=== PATIENT | female | born 2000 | race Caucasian/White ===

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

== ENCOUNTER 2021-03-17 08:10 | Emergency (ER) | payer OTHER, SELFPAY ==
[2021-03-17 08:11] VITALS: BP 145/92; PULSE 99; RESP 16; TEMP 36.2; O2SAT 100; BMI 39.3
--- NOTE | 2021-03-17 08:31 | CT_ITS ---
STUDY: CT ABDOMEN AND PELVIS WITH CONTRAST REASON FOR EXAM: Female, 20 years old. Abd pain -- IV PO Contrast. Chronic UTI. RADIATION DOSAGE (If Supplied By Facility): CTDIvol = ( 15.07 ) mGy, DLP = ( 1283.92 ) mGycm TECHNIQUE: Transaxial images were obtained from the dome of the diaphragm to the symphysis pubis without oral contrast. Oral and amp; IV Gastrografin and amp; 100mL Isovue-300 was administered. Sagittal and coronal images were reconstructed. Individualized dose optimization techniques were used for this CT. COMPARISON: None. FINDINGS: The visualized lung bases are unremarkable. The visualized portions of the heart are within normal limits. Normal liver. Normal gallbladder and extrahepatic biliary system. Normal spleen. Normal pancreas. Normal bilateral adrenal glands. Normal right kidney. Normal left kidney. Normal visualized stomach. Normal small intestine. Normal colon. The appendix is visualized and appears normal. Normal abdominal aorta. Normal inferior vena cava. There is borderline retroperitoneal lymphadenopathy with enlarged nodes no greater than 10mm in the short axis diameter. Normal urinary bladder. Small follicles are seen in the left ovary. An IUD is seen within the uterus. Normal abdominal wall. Normal osseous structures. CT/Abdomen/Pelvis WITH Contrast IMPRESSION: Small follicles are seen within the left ovary. IUD is seen within the endometrium. Electronically Signed: Jose Cortes MD at 10:40 EDT , Service support ,
--- NOTE | 2021-03-17 08:32 | EX.ED.DYSGE1 ---
HPI History of Present Illness Chief Complaint: Complaint Narrative Narrative: 20-year-old female presenting with abdominal pain. Patient states this has been ongoing for approximately 2 weeks. She states she was initially treated for UTI and finished a course of antibiotics. She states her UTI symptoms have resolved. She continues to have lower abdominal pain. She has nausea with no vomiting. She has been having frequent stools and has occasionally has blood in her stool. She states that this does not occur with every bowel movement. Recent Illness/Hospitalization: No PFSH PFSH Medical History no medical history Home Medications bupropion HCl 150 mg PO DAILY 08/01/19 [History Last Taken Unknown] ibuprofen 600 mg PO Q6H PRN #20 tab 08/02/19 [Rx Last Taken Unknown] Allergy/AdvReac Type Severity Reaction Status Date / Time No Known Allergies Allergy Verified 03/17/21 08:14 Social History Smoking Status: Never smoker ROS ROS ED Constitutional Constitutional ED: Denies fever(s) Eyes Eyes: Denies change in vision ENT ENT ED: Denies rhinorrhea or sore throat Cardiovascular Cardiovascular: Denies chest pain or palpitations Respiratory/Chest Respiratory/Chest: Denies cough or dyspnea Gastrointestinal Gastrointestinal: Reports abdominal pain and nausea; Denies diarrhea or vomiting Genitourinary Genitourinary ED: Denies dysuria Musculoskeletal Musculoskeletal: Denies myalgias Integumentary Denies rash Neurologic Neurologic: Denies headache(s) Psychiatric Psychiatric: Denies suicidal thoughts EXAM Physical Exam Const Vital Signs: 03/17/21 08:11 03/17/21 10:55 Temperature 97.1 F L Temperature Source Temporal Pulse Rate 99 71 Respiratory Rate 16 Blood Pressure 145/92 H 119/67 Blood Pressure Mean 109 84 Pulse Ox 100 99 Oxygen Delivery Method Room Air Room Air Positive well nourished and well developed General Appearance ED: well developed HEENT Reports normocephalic and head/scalp atraumatic Eyes PERRL and EOMs intact bilaterally Neck supple General: Negative for tenderness Chest Wall inspection of chest normal Resp normal respiratory effort and clear to auscultation bilaterally Cardio regular rate and regular rhythm GI non-distended Palpation: soft and tender LLQ and RLQ; Negative for guarding or rebound tenderness present no CVA tenderness Extremity normal to inspection Neuro oriented x3 Sensorium / Orientation: alert Psych mental status grossly normal Skin no rashes or lesions noted MDM MDM MDM Narrative Medical decision making narrative: Patient was given IV fluids, Zofran. Labs are unremarkable. Stool is guaiac negative. negative. Urinalysis unremarkable. CT abdomen pelvis was obtained and shows small follicles are seen within the left ovary. IUD is seen within the endometrium. On reevaluation patient is resting comfortably. Advised to follow-up with her primary care physician and [facility]. Advised return to ED for worsening complaints. Lab Data Attestation: I reviewed the patient's lab results. Labs: Laboratory Results - last 24 hr 03/17/21 03/17/21 03/17/21 08:40 08:40 08:40 WBC 8.2 RBC 4.75 Hgb 13.4 Hct 41.1 MCV 86.5 MCH 28.2 MCHC 32.6 RDW Std Deviation 40.7 RDW Coeff of Zaynab 12.7 Plt Count 333 MPV 9.4 Immature Gran % (Auto) 0.600 Neut % (Auto) 64.2 Lymph % (Auto) 27.3 Frederick % (Auto) 6.3 Eos % (Auto) 1.2 Baso % (Auto) 0.4 Absolute Neuts (auto) 5.3 Absolute Lymphs (auto) 2.24 Nucleated RBC % 0 Sodium 140 Potassium 3.8 Chloride 105 Carbon Dioxide 27.0 Anion Gap 8 BUN 9 Creatinine 0.73 Estim Creat Clear Calc 102.54 Est GFR (MDRD) Af Amer 133 Est GFR (MDRD) Non-Af 110 BUN/Creatinine Ratio 12.4 Glucose 86 Calcium 9.2 Total Bilirubin 0.30 AST 10 L ALT 23 Alkaline Phosphatase 68 Total Protein 8.1 Albumin 3.8 Globulin 4.3 H Albumin/Globulin Ratio 0.9 Serum , Qual NEGATIVE Urine Color Urine Clarity Urine pH Ur Specific [place] Urine Protein Urine Glucose (UA) Urine Ketones Urine Occult Blood Urine Nitrite Urine Bilirubin Urine Urobilinogen Ur Leukocyte Esterase Urine RBC Urine WBC Ur Squamous Epith Cells Urine Bacteria Urine Mucus 03/17/21 08:40 WBC RBC Hgb Hct MCV MCH MCHC RDW Std Deviation RDW Coeff of Zaynab Plt Count MPV Immature Gran % (Auto) Neut % (Auto) Lymph % (Auto) Frederick % (Auto) Eos % (Auto) Baso % (Auto) Absolute Neuts (auto) Absolute Lymphs (auto) Nucleated RBC % Sodium Potassium Chloride Carbon Dioxide Anion Gap BUN Creatinine Estim Creat Clear Calc Est GFR (MDRD) Af Amer Est GFR (MDRD) Non-Af BUN/Creatinine Ratio Glucose Calcium Total Bilirubin AST ALT Alkaline Phosphatase Total Protein Albumin Globulin Albumin/Globulin Ratio Serum , Qual Urine Color Yellow Urine Clarity Sl. Cloudy Urine pH 5.0 Ur Specific [place] 1.025 Urine Protein Negative Urine Glucose (UA) Normal Urine Ketones Negative Urine Occult Blood Negative Urine Nitrite Negative Urine Bilirubin Negative Urine Urobilinogen Normal Ur Leukocyte Esterase Negative Urine RBC 0 SEEN Urine WBC 0 SEEN Ur Squamous Epith Cells 5-10 SEEN Urine Bacteria RARE Urine Mucus 0 SEEN Discharge Plan Triage Chief Complaint: Complaint ED Provider: Candi Holder Dx/Rx/DC Orders Clinical Impression: Abdominal pain in female patient Instructions: ED Abdominal Pain Unkn Cause Fem Prescriptions: No Action bupropion HCl 150 MG tablet extended release 24 hr 150 mg PO DAILY RF: 0 ibuprofen 600 MG tablet 600 mg PO Q6H PRN (Reason: Pain) Qty: 20 RF: 1 Primary Care Provider: Samuel aLra Referrals: Samuel Lara MD [Primary Care Provider] - Disposition Disposition: Home, Self Care
[2021-03-17 08:46] LABS: Mucous, Urine 0 SEEN /hpf (<or=2+); Red Blood Cells-Urine 0 SEEN /hpf (0-5); White Blood Cells 0 SEEN /hpf (0-5)
[2021-03-17] MEDS: Ondansetron 4 MG/2 ML Vial IV (08:53)
[2021-03-17] MEDS: 0.9% Normal Saline 1,000 ML 1000 ML IV (08:53)
[2021-03-17 08:56] LABS: Color, Urine Yellow (Yellow); Glucose, Dipstick Normal (Normal); Ketone-Dipstick Negative (Negative); Leukocyte Esterase-Dipstick Negative /ul (Negative); Nitrite-Dipstick Negative (Negative); Occult Blood-Urine Negative /ul (Negative); Protein-Dipstick Negative (Negative); Specific Gravity, Urine 1.025 (1.002-1.030); Urine Bilirubin Dipstick Negative (Negative); Urine Clarity Sl. Cloudy (Clear); Urine Urobilinogen Normal (Normal)
[2021-03-17 09:03] LABS: Bacteria RARE /hpf (None Seen); Squamous Epithelial Cells - UA 5-10 SEEN /hpf (5-10)
[2021-03-17 09:06] LABS: Absolute Lymphocyte Count 2.24 X10^3/uL (0.83-4.51); Absolute Neutrophil Count 5.3 X10^3/uL (2.0-7.7); Basophil# 0.03 X10^3/uL; Basophil% 0.4 % (0-1); Eosinophils% 1.2 % (0-5); Hematocrit 41.1 % (37-47); Hemoglobin 13.4 g/dL (12.0-15.0); Lymphocyte # 2.24 X10^3/ul (0.83-4.51); Lymphocyte % 27.3 % (19-41); Mean Corp Hgb Conc 32.6 g/dL (32-36); Mean Corpuscular Hgb 28.2 pg (27.0-32.0); Mean Corpuscular Volume 86.5 fL (81-99); Mean Platelet Vol. 9.4 fl (6.2-12.0); Monocyte# 0.52 X10^3/uL; Monocyte% 6.3 % (0-10); NRBC Flagged by Analyzer 0 % (0-5); Neutrophil # 5.28 X10^3/uL (2.7-7.7); Neutrophil % 64.2 % (47-70); Platelet Count 333 K/mm3 (150-450); RBC Distribution Width CV 12.7 % (11.6-14.6); RBC Distribution Width SD 40.7 fl (35.1-43.9); Red Blood Count 4.75 M/mm3 (4.2-5.4); White Blood Count 8.2 K/mm3 (4.4-11.0)
[2021-03-17 09:19] LABS: Internal QC Validated? YES +Cl - CLEAR BKGD; Pregnancy, Serum, hCG Quali. NEGATIVE Negative
[2021-03-17 09:27] LABS: ALB/GLOB Ratio 0.9 RATIO (0.9-2.4); AST(SGOT) 10 U/L (15-37); Alanine Aminotransfer ALT/SGPT 23 U/L (13-56); Albumin, Serum 3.8 g/dL (3.2-5.0); Alkaline Phosphatase 68 U/L (45-117); Anion Gap 8 (5-15); BUN 9 mg/dL (7-18); BUN/Creat Ratio 12.4 RATIO (10-20); Calcium,Total 9.2 mg/dL (8.5-10.1); Chloride 105 mmol/L (98-107); Creatinine, Serum 0.73 mg/dL (0.55-1.02); EST Glomerular Filtration Rate 110 mL/min (>60); Est Glom Filt Rate - Afr Amer 133 mL/min (>60); Estimated Creatinine Clearance 102.54 ml/min; Globulin 4.3 g/dL (2.2-4.2); Glucose 86 mg/dL (74-106); Potassium 3.8 mmol/L (3.5-5.1); Protein, Total 8.1 g/dL (6.4-8.2); Sodium Level 140 mmol/L (136-145)
[2021-03-17] MEDS: 0.9% Normal Saline 1,000 ML 150 ML IV (09:42)
[2021-03-17 10:55] VITALS: BP 119/67; PULSE 71; O2SAT 99
== END 2021-03-17 12:41 | disposition home or self-care (01) ==
PROVIDERS: Emergency Provider Emergency Medicine; PCP Pediatrics
DX: R10.30 Lower abdominal pain, unspecified (principal); K92.1 Melena; Z87.440 Personal history of urinary (tract) infections; Z97.5 Presence of (intrauterine) contraceptive device
CPT/HCPCS: 74177; 80053; 81001; 82274; 84703; 85025; 96361; 96374; 99284; J7030; Q9967; A4216; J2405

== ENCOUNTER 2021-09-25 08:38 | Emergency (ER) | payer OTHER, SELFPAY ==
[2021-09-25 08:41] VITALS: BP 124/67; PULSE 83; RESP 16; TEMP 36.2; O2SAT 97; BMI 40.5
[2021-09-25 08:51] VITALS: BP 124/67; PULSE 83; RESP 16; TEMP 36.2; O2SAT 97
--- NOTE | 2021-09-25 09:07 | EX.ED.VISEXT ---
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 She is taking care of of 2 pitbull mixes, and she let the dogs out to use the bathroom and heard them involved in a fight, found them fighting a cat. Eventually the dogs left the cat alone, and the patient thought that the cat was lying on the ground. She put her hoodie over the cat and lifted it up, and it then scratched her on the left forearm and bit her in the right finger through the hoodie. Eventually the cat ran off. She has never seen this cat before seeing the dogs fighting it. She did not notice any tags or a collar. She states that in her right index finger, she has a puncture wound on the volar aspect, but on the dorsal aspect she states that the tooth of the cat seem to scrape her across the finger without a puncture wound. She cleansed all of this in hydrogen peroxide and then dressed it with antibiotic ointment until she presented here this morning. She denies any fevers or systemic symptoms, she does has a little soreness in her right finger but otherwise is okay. Tetanus Immunization: 5-10 years ROS ROS ED Constitutional Constitutional ED: Denies chills or fever(s) Musculoskeletal Musculoskeletal: Reports extremity pain; Denies neck pain Integumentary Reports as per HPI and wounds; Denies Abrasions or rash Neurologic Neurologic: Denies paresthesias or weakness PFSH PFSH Medical History no medical history no medical history Home Medications bupropion HCl 150 mg PO DAILY 08/01/19 [History Last Taken Unknown] ibuprofen 600 mg PO Q6H PRN #20 tab 08/02/19 [Rx Last Taken Unknown] amoxicillin-pot clavulanate 875 mg PO Q12H #14 tablet 09/25/21 [Rx Last Taken Unknown] Allergy/AdvReac Type Severity Reaction Status Date / Time No Known Allergies Allergy Verified 09/25/21 08:44 Social History Smoking Status: Never smoker EXAM Physical Exam Const Vital Signs: 09/25/21 08:41 09/25/21 08:51 Temperature 97.1 F L 97.1 F L Temperature Source Temporal Temporal Pulse Rate 83 83 Respiratory Rate 16 16 Blood Pressure 124/67 H 124/67 H Blood Pressure Mean 86 86 Pulse Ox 97 97 Oxygen Delivery Method Room Air Room Air Positive well nourished and well developed General Appearance ED: well developed and NAD Neck full ROM and supple Back/Spine normal ROM and normal to inspection Extremity Extremity Narrative: Puncture wounds to the right index finger see below at the skin exam. Full range of motion of the index finger, including at the PIPJ without any apparent difficulty or discomfort. No swelling. No signs of an abscess. Very mild tenderness only in the palm along the first ray without any redness or swelling. Full range of motion throughout all other joints of the right upper extremity. Neuro oriented x3, no focal motor deficits and no sensory deficits noted Sensorium / Orientation: alert Psych mental status grossly normal and thought process normal Skin Skin Narrative: Multiple superficial abrasions to the left forearm without any laceration or signs of infection. 1 puncture wound at the volar aspect of the right index finger, PIPJ, mildly tender, scabs, no signs of infection. Abrasion at the dorsum of the PIPJ superficial, caused by a tooth according to the patient, no signs of infection or lymphangitis. No abscesses in the right hand. No lymphangitis. No swelling. Rashes: no rashes MDM MDM MDM Narrative Medical decision making narrative: There is nothing that needs repaired here. Clinically she does not have anything consistent with flexor tenosynovitis which would be the worst case scenario given the location where the puncture is, my guess is that it was not deep enough to cause this. Regardless with a puncture on the hand she will be treated with Augmentin, the first dose was given here. We discussed her tetanus which needs updated and she is okay with that, and we discussed rabies. She is immunocompetent, this is a stray cat and she was not able to witness the cat prior to finding it involved in a fight, so unknown if it is well or sick and it took off and she has not seen it again. Therefore I recommend the rabies vaccines and she is in agreement. Unfortunately she will also need the rabies immune globulin injected in her right hand at the base of the index finger which we did after discussing the pros and cons of that (out of 6.92cc total needed, I injected 2cc as a ring around her R index MCPJ), and nursing will give the rest intramuscularly elsewhere. Given appropriate discharge instructions with regards to the rest of the rabies vaccine series. Discharge Plan Triage Chief Complaint: Bite ED Provider: Joss Walker Dx/Rx/DC Orders Clinical Impression: Open wound of right index finger due to cat bite, Abrasion of left forearm, Immunization, tetanus-diphtheria, Need for immunization against rabies Instructions: Understanding Rabies, ED Cat Bite, Rabies Immune Globulin (Human) Solution for injection Prescriptions: New amoxicillin-pot clavulanate [amoxicillin-pot clavulanate] 875 MG tablet 875 mg PO Q12H Qty: 14 RF: 0 No Action bupropion HCl 150 MG tablet extended release 24 hr 150 mg PO DAILY RF: 0 ibuprofen 600 MG tablet 600 mg PO Q6H PRN (Reason: Pain) Qty: 20 RF: 1 Primary Care Provider: Samuel Lara Referrals: Samuel Lara MD [Primary Care Provider] - As Needed (Return to ER for the rest of your 4 total rabies vaccinations, you already had the first today --see attached instructions) Disposition Disposition: Home, Self Care
[2021-09-25] MEDS: Diphth,Pertuss(Acell),Tet Vac 0.5 ML Vial IM (09:16)
[2021-09-25] MEDS: Amox/Clavulanate 875 MG Tablet PO (09:17)
[2021-09-25] MEDS: Rabies Vaccine,Human Diploid 2.5 UNITS Vial IM (10:27)
[2021-09-25] MEDS: Rabies Immune Globulin/PF 300 UNIT/ML, 5 ML VIAL 2080 UNIT IM (10:31)
[2021-09-25 10:41] VITALS: BP 113/75; PULSE 83; RESP 18
== END 2021-09-25 11:11 | disposition home or self-care (01) ==
PROVIDERS: Emergency Provider Emergency Medicine; PCP Pediatrics; Visit Provider Emergency Medicine
DX: S61.230A Puncture wound without foreign body of right index finger without damage to nail, initial encounter (principal); S50.812A Abrasion of left forearm, initial encounter; W55.01XA Bitten by cat, initial encounter; Y92.017 Garden or yard in single-family (private) house as the place of occurrence of the external cause; Z23 Encounter for immunization
CPT/HCPCS: 90375; 90471; 90675; 90715; 96372; 99283

== ENCOUNTER 2021-09-28 18:28 | Outpatient (CLI) | payer OTHER, SELFPAY ==
[2021-09-28 18:57] VITALS: BP 111/66; PULSE 92; BMI 40.2
== END 2021-09-28 19:14 | disposition home or self-care (01) ==
PROVIDERS: PCP Pediatrics; Visit Provider Emergency Medicine
DX: Z23 Encounter for immunization (principal)
CPT/HCPCS: 90675; 96372

== ENCOUNTER 2021-10-02 18:20 | Emergency (ER) | payer OTHER, SELFPAY ==
[2021-10-02 18:21] VITALS: BP 121/69; PULSE 93; RESP 18; TEMP 36.3; O2SAT 98; BMI 40.2
[2021-10-02 18:23] VITALS: BP 121/69; PULSE 93; RESP 18; O2SAT 98; BMI 40.2
[2021-10-02 18:40] VITALS: BMI 40.2
== END 2021-10-02 19:04 | disposition home or self-care (01) ==
PROVIDERS: PCP Pediatrics
DX: Z23 Encounter for immunization (principal)
CPT/HCPCS: 90675; 96372

== ENCOUNTER 2021-10-09 19:19 | Outpatient (CLI) | payer OTHER, SELFPAY ==
[2021-10-09 19:19] VITALS: BP 125/71; PULSE 88; RESP 16; TEMP 36.4; O2SAT 99; BMI 40.5
[2021-10-09] MEDS: Rabies Vaccine,Human Diploid 2.5 UNITS Vial IM (20:00)
== END 2021-10-09 20:18 | disposition home or self-care (01) ==
PROVIDERS: PCP Pediatrics
DX: Z23 Encounter for immunization (principal)
CPT/HCPCS: 90675; 96372

== ENCOUNTER 2024-07-19 10:55 | Day surgery (SDC) | payer OTHER, SELFPAY ==
--- NOTE | 2024-07-18 15:59 | PAT.ANESEVAL ---
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 When Was Last Pacemaker Check QUESTION #4 FULL TEXT: You/Your Family Experience fever (hyperthermia) with Anesthesia Last Oral Intake Last Oral intake: Last Oral Intake NPO since Meds taken in AM with sips of water? Meds patient instructed to take am of surgery PONV PONV - assistant sales center manager: PONV - assistant sales center manager Female Yes 07/18/24 14:41 HX of Motion Sickness No 07/18/24 14:41 HX of N/V After Surgery No 07/18/24 14:41 Non-Smoker Yes 07/18/24 14:41 Duration of Surgery greater No 07/18/24 14:41 than 60 minutes Number of Risk Factors 2 07/18/24 14:41 PONV Score Moderate Risk 07/18/24 14:41 Height & Weight Height & Weight: Anesthesia: Height & Weight Height 5 ft 3 in 10/09/21 19:19 Respiratory Assessment Respiratory Assessment - assistant sales center manager: Respiratory Tract Infection Hx - assistant sales center manager Hx Respiratory Tract Infection No 07/18/24 14:41 STOP Sleep Apnea STOP Sleep Apnea - assistant sales center manager: STOP Sleep Apnea - assistant sales center manager Hx Hypertension No 07/18/24 14:41 Hx Sleep Apnea No 07/18/24 14:41 CPAP BIPAP Do you snore loudly (louder No 07/18/24 14:41 than talking or can be heard Do you often feel tired/ No 07/18/24 14:41 fatigued/ sleepy during daytime? Has anyone observed you stop No 07/18/24 14:41 breathing during sleep? STOP Results Negative 07/18/24 14:41 QUESTION #5 FULL TEXT : Do you snore loudly (louder than talking or can be heard through closed doors)? 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 Specify any problems Hx of Preganancy in last 3 No 07/18/24 14:41 Months Nurse Filling Out Transfusion VCHRISTIN 07/18/24 14:41 & Questions: Date: 07/18/24 07/18/24 14:41 Time: 14:42 07/18/24 14:41 Patient unable to answer at this time (ie. confused, unrespo /Reproduction History /Reproductive History - assistant sales center manager: /Reproductive Hx- assistant sales center manager Hx Now No 07/18/24 14:41 Gestational Age (in weeks): EDC: Hx Hx Para Hx Section SAB No 07/18/24 14:41 PFS Medical History (Updated 07/18/24 @ 14:40 by Brandee Hussein) Wears contact lenses Alcohol use Non-smoker Epigastric pain Dysphagia Recurrent UTI History of suicide attempt Anxiety Depression Constipation GERD (gastroesophageal reflux disease) Home Medications ?Medication ?Instructions ?Recorded ?Last Taken ?Type ibuprofen 600 mg tablet 600 mg PO Q6H PRN Pain #20 tabs 08/02/19 Unknown Rx bupropion HCl 300 mg 24 hr tablet, 300 mg PO QAM 06/01/24 Unknown History extended release fluoxetine 40 mg capsule 40 mg PO DAILY 06/01/24 Unknown History levonorgestrel (Mirena) 1 device intrauterine ONCE 06/01/24 Unknown History tirzepatide 10 mg/0.5 mL 10 mg subcut QWEEK 06/01/24 07/12/24 History subcutaneous pen injector linaclotide 145 mcg capsule 145 mcg PO QAM #60 caps 06/13/24 Unknown Rx (Linzess) pantoprazole 40 mg tablet,delayed 40 mg PO BID 06/13/24 Unknown History release Allergy/AdvReac Type Severity Reaction Status Date / Time No Known Allergies Allergy Verified 07/18/24 14:34 Family History Mother Depression Father HLD (hyperlipidemia) Surgical History (Updated 07/18/24 @ 14:40 by Brandee Hussein) Hx of surgical procedure Social History (Updated 06/01/24 @ 09:05 by Sherri Nicholas) Smoking Status: Never smoker alcohol intake: never substance use type: does not use Audit: Pertinent Findings Pertinent Findings Additional pertinent findings: Patient on Mounjaro last dose 07/12/2024 should be okay for procedure as 7 days elapsed Recommendation Anesthesia Recommendation Anesthesia recommendation: OPTIMIZED for anesthesia
[2024-07-19] VITALS (7 sets, daily range): BP systolic 94–115; BP diastolic 60–83; PULSE 73–87; RESP 16; TEMP 36.2–36.8; O2SAT 98–100; BMI 25.9
[2024-07-19 11:46] LABS: Internal QC Validated? YES +Cl - CLEAR BKGD; Pregnancy, Urine Negative Negative
--- NOTE | 2024-07-19 12:21 | PCM.PRE.AN2 ---
ASA Classification* ASA Classification ASA Classification: 2 Assessment & Plan Anesthesia* Anesthesia Assessment Anesthesia Assessment: Discussed sedation and/or anesthesia options, risks, benefits, and alternatives with patient/parents/legal guardian/POA. Questions invited. The patient/parents/legal guardian/POA seems to understand and agrees to proceed with anesthesia plan. Reviewed the physical assessment, medical history, allergy history and patient home medications list prior to surgery/procedure/anesthetic and documented any changes. Performed airway and anesthesia risk assessments. Anesthesia Type Anesthesia Type: MAC History Source History Obtained from:: Patient and Chart Anesthesia Focused Assessment* Temperature: 98.2 F Pulse Rate: 83 Blood Pressure: 101/72 Respiratory Rate: 16 Pulse Ox: 100 Oxygen Delivery Method: Room Air Airway Assessment Mouth opens: >3 cm Mallampati Score: I Teeth Condition: Intact Neck Range of motion (ROM): Full ROM Focused Labs Anesthesia Preop lab: CBC WBC 8.2 K/mm3 (4.4-11.0) 03/17/21 08:40 03/17/21 RBC 4.75 M/mm3 (4.2-5.4) 03/17/21 08:40 03/17/21 Hgb 13.4 g/dL (12.0-15.0) 03/17/21 08:40 03/17/21 Hct 41.1 % (37-47) 03/17/21 08:40 03/17/21 Plt Count 333 K/mm3 (150-450) 03/17/21 08:40 03/17/21 CHEMISTRY Potassium 3.8 mmol/L (3.5-5.1) 03/17/21 08:40 03/17/21 Sodium 140 mmol/L (136-145) 03/17/21 08:40 03/17/21 BUN 9 mg/dL (7-18) 03/17/21 08:40 03/17/21 Creatinine 0.73 mg/dL (0.55-1.02) 03/17/21 08:40 03/17/21 Glucose 86 mg/dL (74-106) 03/17/21 08:40 03/17/21 COAG Urine Test Negative Negative 07/19/24 11:32 07/19/24 Pre-Assessment Diagnosis/Proposed Procedure Planned Operative Procedure(s): COLONOSCOPY/EGD Anesthesia History Anesthesia History - continuity reader: Anesthesia History - continuity reader Hx Hospitalization No 07/18/24 14:41 Any Problems With Anesthesia No 07/18/24 14:41 Cholinesterase deficiency No 07/18/24 14:41 You/Your Family Experience No 07/18/24 14:41 fever (hyperthermia) with Relationship Recent Exposure to Contagious No 07/19/24 11:43 Disease Does patient have nerve No 07/18/24 14:41 stimulator Patient instructed to have device shut off --Does patient have Pacemaker No 07/19/24 11:43 or ICD? When Was Last Pacemaker Check QUESTION #4 FULL TEXT: You/Your Family Experience fever (hyperthermia) with Anesthesia Last Oral Intake Last Oral intake: Last Oral Intake NPO since 09:30 07/19/24 11:43 Meds taken in AM with sips of water? Meds patient instructed to take am of surgery Any additional information?: Yes NPO since: 09:30 (Patient finished prep at 9:30 AM.) PONV PONV - continuity reader: PONV - continuity reader Female Yes 07/18/24 14:41 HX of Motion Sickness No 07/18/24 14:41 HX of N/V After Surgery No 07/18/24 14:41 Non-Smoker Yes 07/18/24 14:41 Duration of Surgery greater No 07/18/24 14:41 than 60 minutes Number of Risk Factors 2 07/18/24 14:41 PONV Score Moderate Risk 07/18/24 14:41 Height & Weight Height & Weight: Anesthesia: Height & Weight Height 5 ft 3 in 07/19/24 11:43 Weight: 66.6 kg 07/19/24 11:43 Body Mass Index (BMI) 25.9 07/19/24 11:43 Respiratory Assessment Respiratory Assessment - continuity reader: Respiratory Tract Infection Hx - continuity reader Hx Respiratory Tract Infection No 07/18/24 14:41 STOP Sleep Apnea STOP Sleep Apnea - continuity reader: STOP Sleep Apnea - continuity reader Hx Hypertension No 07/18/24 14:41 Hx Sleep Apnea No 07/18/24 14:41 CPAP BIPAP Do you snore loudly (louder No 07/18/24 14:41 than talking or can be heard Do you often feel tired/ No 07/18/24 14:41 fatigued/ sleepy during daytime? Has anyone observed you stop No 07/18/24 14:41 breathing during sleep? STOP Results Negative 07/18/24 14:41 QUESTION #5 FULL TEXT : Do you snore loudly (louder than talking or can be heard through closed doors)? 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 Specify any problems Hx of Preganancy in last 3 No 07/18/24 14:41 Months Nurse Filling Out Transfusion VCHRISTIN 07/18/24 14:41 & Questions: Date: 07/18/24 07/18/24 14:41 Time: 14:42 07/18/24 14:41 Patient unable to answer at this time (ie. confused, unrespo /Reproduction History /Reproductive History - continuity reader: /Reproductive Hx- continuity reader Hx Now No 07/18/24 14:41 Gestational Age (in weeks): EDC: Hx Hx Para Hx Section SAB No 07/18/24 14:41 PFSH Medical History Wears contact lenses Alcohol use Non-smoker Epigastric pain Dysphagia Recurrent UTI History of suicide attempt Anxiety Depression Constipation GERD (gastroesophageal reflux disease) Home Medications ?Medication ?Instructions ?Recorded ?Last Taken ?Type ibuprofen 600 mg tablet 600 mg PO Q6H PRN Pain #20 tabs 08/02/19 Unknown Rx bupropion HCl 300 mg 24 hr tablet, 300 mg PO QAM 06/01/24 Unknown History extended release fluoxetine 40 mg capsule 40 mg PO DAILY 06/01/24 Unknown History levonorgestrel (Mirena) 1 device intrauterine ONCE 06/01/24 Unknown History tirzepatide 10 mg/0.5 mL 10 mg subcut QWEEK 06/01/24 07/12/24 History subcutaneous pen injector linaclotide 145 mcg capsule 145 mcg PO QAM #60 caps 06/13/24 Unknown Rx (Linzess) pantoprazole 40 mg tablet,delayed 40 mg PO BID 06/13/24 Unknown History release Allergy/AdvReac Type Severity Reaction Status Date / Time No Known Allergies Allergy Verified 07/19/24 11:41 Family History Mother Depression Father HLD (hyperlipidemia) Surgical History Hx of surgical procedure Social History Smoking Status: Never smoker alcohol intake: never substance use type: does not use Review of Systems (Anesthesia) ROS Narrative System reviewed and no additional complaints, except as documented.
--- NOTE | 2024-07-19 12:30 | EGD_PTH ---
PATIENT: ADEN COLEMAN LOC: EN U#:[id number] AGE/SX: 23/F ROOM: RE07/19/[address]: Dr. Loco Albert DO : 2000 BED: DIS: 07/19/2024 SPEC #: [id number] RECD: 07/19/24 14:27 STATUS: ELOISA REDarrius #: [id number] STACEY: 07/19/24 12:[address]: Loco Albert DEPT: SURGICAL PATHOLOGY RECD BY: Eunice Hill ENTERED: 07/20/24 08:23 SP TYPE: EGD BIOPSY MAXINE DR: Dr. Shabbir Tran MD Tissues: A - Esophagus, NOS B - Duodenum, NOS C - Ileum, NOS Procedures: Surgery Specimen Level IV HEADER OPERATION: Colonoscopy, EGD, biopsy, dilation PRE-OP DIAGNOSIS: Dysphagia, constipation TISSUE SUBMITTED: A- Random esophagus biopsy, B- Duodenum biopsy, C-Terminal ileum biopsy MICROSCOPIC DIAGNOSIS A. Esophagus, random biopsy: Squamous and glandular mucosa with focal chronic inflammation. Squamous mucosa showing changes suggestive of mild acute reflux esophagitis. Negative for intestinal metaplasia / Wells's esophagus. Negative for dysplasia. Negative for eosinophilic esophagitis. B. Duodenum, biopsy: Chronic duodenitis. Villous architecture is maintained. No significant increase in intraepithelial lymphocytes, not suggestive of Celiac's disease. C. Terminal ileum, biopsy: Ileal mucosa with focal vascular dilation and mild focal mucosal hemorrhage. PW.mr 07/23/2024 MICROSCOPIC DESCRIPTION Slides are reviewed. GROSS DESCRIPTION A. Received in fixative is one container labeled with the patient's name and designated Random esophagus biopsy. The specimen consists of multiple irregular fragments of light flores soft tissue that in aggregate measure 1.4 x 0.4 x 0.1 cm. The specimen is totally submitted in one cassette. B. Received in fixative is one container labeled with the patient's name and designated Duodenum biopsy. The specimen consists of two irregular fragments of light flores soft tissue that in aggregate measure 1 x 0.5 x 0.1 cm. The specimen is totally submitted in one cassette. C. Received in fixative is one container labeled with the patient's name and designated Terminal ileum biopsy. The specimen consists of two irregular fragments of light flores soft tissue that in aggregate measure 0.7 x 0.5 x 0.1 cm. The specimen is totally submitted in one cassette. MS/mr 07/20/2024 TC:3 CPT:97703d0
--- NOTE | 2024-07-19 12:49 | HP.PCM_ITS ---
HPI - General General Date of Admission: 07/19/24 Date of Service: 07/19/24 HPI Narrative ADEN COLEMAN, is a 23 F who presents for endoscopic evaluation of constipation and difficulty swallowing Over the past two years pt has had issues with swallowing. This is happening a few times per week but sometimes multiple times per day. She will swallow and then it will feel stuck and she will have to regurgitate it back up. She will also have nausea during these times. It started with just her pills but has progressed to solids and liquids. She did start taking pantoprazole 40 mg BID about 2-3 weeks ago which has been helpful. She has suffered from constipation for the majority of her life. She typically has one bowel movement per week. Her bm are small and hard. She has tried OTC medications like miralax with little result. She has never had upper or lower scopes. FORMERLY [facility], 1928–1983 Medical History Wears contact lenses Alcohol use Non-smoker Epigastric pain Dysphagia Recurrent UTI History of suicide attempt Anxiety Depression Constipation GERD (gastroesophageal reflux disease) Home Medications ?Medication ?Instructions ?Recorded ?Last Taken ?Type ibuprofen 600 mg tablet 600 mg PO Q6H PRN Pain #20 t abs 08/02/19 Unknown Rx bupropion HCl 300 mg 24 hr tablet, 300 mg PO QAM 06/01 Unknown History extended release fluoxetine 40 mg capsule 40 mg PO DAILY 06/01/24 Unkn own History levonorgestrel (Mirena) 1 device intrauterine ONCE 1 08/02/23 Unknown History tirzepatide 10 mg/0.5 mL 10 mg subcut QWEEK 06/01/24 07/12/24 History subcutaneous pen injector linaclotide 145 mcg capsule 145 mcg PO QAM #60 caps Unknown Rx (Linzess) pantoprazole 40 mg tablet,delayed 40 mg PO BID 5 Unknown History release Allergy/AdvReac Type Severity Reaction Status Date / Time No Known Allergies Allergy Verified 07/19/24 11:41 Family History Mother Depression Father HLD (hyperlipidemia) Surgical History Hx of surgical procedure Social History Smoking Status: Never smoker alcohol intake: never substance use type: does not use ROS Constitutional Constitutional: Denies fatigue, fever(s), poor appetite, weight gain or weight loss Gastrointestinal Gastrointestinal: Denies belching, bloating, change in bowel habits, change in stool character, chewing difficulty, coffee ground emesis, constipation, cramping, diarrhea, dyspepsia, dysphagia, early satiety, excessive flatus, fecal incontinence, heartburn, hematemesis, hematochezia, hemorrhoids, loose stools, melena, nausea, odynophagia, rectal bleeding, tenesmus, vomiting or weight changes Vital Signs Vital Signs Vital Signs: 07/19/24 11:43 07/19/24 11:43 07/19/24 12:31 Temperature 98.2 F 98.2 F Temperature Source Temporal Pulse Rate 83 83 Respiratory Rate 16 16 Respiratory Pattern Normal Blood Pressure 101/72 101/72 Blood Pressure Mean 81 Blood Pressure Source Monitor Blood Pressure Position Semi-Fowlers Blood Pressure Location Left Arm Pulse Ox 100 100 Oxygen Delivery Method Room Air Room Air Weight Weight: 146 lb 13.246 oz Body Mass Index (BMI) 25.9 Physical Exam Const alert, oriented x3, no apparent distress and healthy appearing General Appearance: cooperative GI normal to inspection, nondistended, normoactive bowel sounds, soft to palpation, non-tender and non-distended Percussion: normal to percussion Rectal Exam: deferred Results Lab / Micro Data Labs: Laboratory Results - last 24 hr 07/19/24 11:32: Urine Test Negative Assessment & Plan Assessment/Plan (1) Dysphagia: (2) Constipation: PLAN: Plan Assessment and Plan (1) Dysphagia: Status: Acute Plan: This is a 23 yo female pt presenting with difficulty swallowing over the past two years and life long constipation. The swallowing started just with pills but progressed to be with foods and liquids. Pantoprazole twice a day has been helpful. She will undergo EGD to assess her upper GI tract for GERD, stricture or EOE. She has also struggled with constipation for as long as she an remember. She wishes to have a colonoscopy. She will also be scheduled for a colonoscopy to assess for IBD. I feel her constipation is likely related to IBS but will rule out other etiology. SHe will be started on Linzess 145 mcg daily for constipation. -EGD -Colonoscopy -Linzess 145 mcg (2) Constipation: Status: Acute Medications: New linaclotide (Linzess) 145 mcg PO QAM 60 caps 2RF
--- NOTE | 2024-07-19 13:39 | PCM.POST.ANE ---
Anesthesia: Postop Eval I Current Vital Signs Temperature: 97.1 F Pulse Rate: 87 Blood Pressure: 115/83 Respiratory Rate: 16 Pulse Ox: 98 Oxygen Delivery Method: Room Air Assessment Airway patent: Yes Spontaneous unlabored respirations: Yes Mental status: Awake and Calm nausea: No Vomiting: No Anesthesia Complication: No Fluid Hydration Crystalloid volume administer (ml): 60 Total IV fluid infused: 60 Progress Note Anesthesia document: Postop Eval 1 completed: Yes
--- NOTE | 2024-07-19 13:54 | OP.CCLET_ITS ---
07/19/2024 Samuel Lara [address] [place] [address] Re : Upper GI endoscopy procedure for Nancy Tomas Dear Dr. Lara This procedure was performed on July. My impressions and recommendations are as follows: Impressions : - Esophageal mucosal changes consistent with eosinophilic esophagitis. Dilated. - Small hiatal hernia. - Erythematous duodenopathy. - Biopsies were taken with a cold forceps for evaluation of eosinophilic esophagitis. Recommendations : - Discharge patient to home. - Resume previous diet. - Continue present medications. - Await pathology results. My findings are described in the full procedure note, which is enclosed. If I can be of further assistance, please feel free to contact me at . Sincerely, Loco Albert, 07/19/2024 1:53:31 PM This report has been signed electronically.
--- NOTE | 2024-07-19 13:54 | OP.EGD_ITS ---
Patient Name: Nancy Tomas Procedure Date: 07/19/2024 12:53 PM Date of : 2000 Age: 23 Procedure: Upper GI endoscopy Indications: Dysphagia Providers: Loco Albert DO Medicines: Monitored Anesthesia Care Patient Profile: This is a 23 year old female. Refer to note in patient chart for documentation of history and physical. Patient has symptoms of dysphagia with solids. Complications: No immediate complications. Procedure: Pre-Anesthesia Assessment: - Prior to the procedure, a History and Physical was performed, and patient medications and allergies were reviewed. The patient is competent. The risks and benefits of the procedure and the sedation options and risks were discussed with the patient. All questions were answered and informed consent was obtained. Patient identification and proposed procedure were verified by the physician in the pre-procedure area. Mental Status Examination: alert and oriented. Airway Examination: normal oropharyngeal airway and neck mobility. Respiratory Examination: clear to auscultation. CV Examination: normal. Prophylactic Antibiotics: The patient does not require prophylactic antibiotics. Prior Anticoagulants: The patient has taken no anticoagulant or antiplatelet agents. ASA Grade Assessment: II - A patient with mild systemic disease. After reviewing the risks and benefits, the patient was deemed in satisfactory condition to undergo the procedure. The anesthesia plan was to use monitored anesthesia care (MAC). Immediately prior to administration of medications, the patient was re-assessed for adequacy to receive sedatives. The heart rate, respiratory rate, oxygen saturations, blood pressure, adequacy of pulmonary ventilation, and response to care were monitored throughout the procedure. The physical status of the patient was re-assessed after the procedure. After obtaining informed consent, the endoscope was passed under direct vision. Throughout the procedure, the patient's blood pressure, pulse, and oxygen saturations were monitored continuously. The Colonoscope was introduced through the mouth, and advanced to the second part of duodenum. The upper GI endoscopy was accomplished without difficulty. The patient tolerated the procedure well. Scope In: 1:08:45 PM Scope Withdrawal Time 0 hours 0 minutes 1 second Scope Out: 1:14:00 PM Total Procedure Duration Time 0 hours 5 minutes 15 seconds Findings: Mucosal changes including ringed esophagus and small-caliber esophagus were found in the upper third of the esophagus, in the middle third of the esophagus and in the lower third of the esophagus. Esophageal findings were graded using the Eosinophilic Esophagitis Endoscopic Reference Score (EoE-EREFS) as: Edema Grade 1 Present (decreased clarity or absence of vascular markings) and Rings Grade 1 Mild (subtle circumferential ridges seen on esophageal distension). Biopsies were obtained from the proximal and distal esophagus with cold forceps for histology of suspected eosinophilic esophagitis. A guidewire was placed and the scope was withdrawn. Dilation was performed with a Savary dilator with no resistance at 57 Fr. The dilation site was examined and showed moderate mucosal disruption. A small hiatal hernia was present. No other significant abnormalities were identified in a careful examination of the stomach. Diffuse mildly erythematous mucosa without active bleeding and with no stigmata of bleeding was found in the duodenal bulb. Impression: - Esophageal mucosal changes consistent with eosinophilic esophagitis. Dilated. - Small hiatal hernia. - Erythematous duodenopathy. - Biopsies were taken with a cold forceps for evaluation of eosinophilic esophagitis. Recommendation: - Discharge patient to home. - Resume previous diet. - Continue present medications. - Await pathology results. Procedure Code(s): --- Professional --- 57203, Esophagogastroduodenoscopy, flexible, transoral; with insertion of guide wire followed by passage of dilator(s) through esophagus over guide wire 87621, 59,51, Esophagogastroduodenoscopy, flexible, transoral; with biopsy, single or multiple CPT copyright 2021 [employer]. All rights reserved. The codes documented in this report are preliminary and upon clinical coder review may be revised to meet current compliance requirements. Loco Albert DO 07/19/2024 1:53:31 PM This report has been signed electronically. Number of Addenda: 0 Note Initiated On: 07/19/2024 12:53 PM
--- NOTE | 2024-07-19 13:55 | OP.COLON_ITS ---
Patient Name: Nancy Tomas Procedure Date: 07/19/2024 1:14 PM Date of : 2000 Age: 23 Procedure: Colonoscopy Indications: This is the patient's first colonoscopy, Generalized abdominal pain Providers: Loco Albert DO Medicines: Monitored Anesthesia Care Patient Profile: This is a 23 year old female. Refer to note in patient chart for documentation of history and physical. Patient has symptoms of dysphagia with solids. Last Colonoscopy: none. The patient's first colonoscopy is today. Complications: No immediate complications. Procedure: Pre-Anesthesia Assessment: - Prior to the procedure, a History and Physical was performed, and patient medications and allergies were reviewed. The patient is competent. The risks and benefits of the procedure and the sedation options and risks were discussed with the patient. All questions were answered and informed consent was obtained. Patient identification and proposed procedure were verified by the physician in the pre-procedure area. Mental Status Examination: alert and oriented. Airway Examination: normal oropharyngeal airway and neck mobility. Respiratory Examination: clear to auscultation. CV Examination: normal. Prophylactic Antibiotics: The patient does not require prophylactic antibiotics. Prior Anticoagulants: The patient has taken no anticoagulant or antiplatelet agents. ASA Grade Assessment: II - A patient with mild systemic disease. After reviewing the risks and benefits, the patient was deemed in satisfactory condition to undergo the procedure. The anesthesia plan was to use monitored anesthesia care (MAC). Immediately prior to administration of medications, the patient was re-assessed for adequacy to receive sedatives. The heart rate, respiratory rate, oxygen saturations, blood pressure, adequacy of pulmonary ventilation, and response to care were monitored throughout the procedure. The physical status of the patient was re-assessed after the procedure. After I obtained informed consent, the scope was passed under direct vision. Throughout the procedure, the patient's blood pressure, pulse, and oxygen saturations were monitored continuously. The Colonoscope was introduced through the anus and advanced to the terminal ileum. The colonoscopy was performed without difficulty. The patient tolerated the procedure well. The quality of the bowel preparation was adequate. The terminal ileum, ileocecal valve, appendiceal orifice, and rectum were photographed. Scope In: 1:15:23 PM Scope Withdrawal Time 0 hours 5 minutes 27 seconds Scope Out: 1:27:09 PM Total Procedure Duration Time 0 hours 11 minutes 46 seconds Findings: The perianal and digital rectal examinations were normal. The entire examined colon appeared normal on direct and retroflexion views. A patchy area of the terminal ileum was congested. Several biopsies were obtained with cold forceps for histology randomly in the proximal ileum. Impression: - The entire examined colon is normal on direct and retroflexion views. - Congested mucosa in the terminal ileum. - Several biopsies were obtained in the proximal ileum. Recommendation: - Discharge patient to home. - Resume previous diet. - Continue present medications. - Await pathology results. - Repeat colonoscopy for screening purposes. Procedure Code(s): --- Professional --- 53593, Colonoscopy, flexible; with biopsy, single or multiple CPT copyright 2021 [employer]. All rights reserved. The codes documented in this report are preliminary and upon green energy marketing analyst review may be revised to meet current compliance requirements. Loco Albert DO 07/19/2024 1:55:27 PM This report has been signed electronically. Number of Addenda: 0 Note Initiated On: 07/19/2024 1:14 PM
--- NOTE | 2024-07-19 13:56 | OP.CCLET_ITS ---
07/19/2024 Samuel Lara [address] [place] [address] Re : Colonoscopy procedure for Nancy Tomas Dear Dr. Lara This procedure was performed on July. My impressions and recommendations are as follows: Impressions : - The entire examined colon is normal on direct and retroflexion views. - Congested mucosa in the terminal ileum. - Several biopsies were obtained in the proximal ileum. Recommendations : - Discharge patient to home. - Resume previous diet. - Continue present medications. - Await pathology results. - Repeat colonoscopy for screening purposes. My findings are described in the full procedure note, which is enclosed. If I can be of further assistance, please feel free to contact me at . Sincerely, Loco Albert, 07/19/2024 1:55:27 PM This report has been signed electronically.
--- NOTE | 2024-07-19 18:29 | PCM.POSTANE2 ---
Anesthesia Postop Eval I Sum Postop Eval Completion status Anesthesia document: Postop Eval 1 completed: Yes Anesthesia Postop Eval I Summary Anesthesia Postop Eval I Summary: Anesthesia Postop Eval I: Assessment Summary Airway patent Yes 07/19/24 13:40 [email or web address] Spontaneous unlabored Yes 07/19/24 13:40 [email or web address] respirations Mental status Awake,Calm 07/19/24 13:40 [email or web address] nausea No 07/19/24 13:40 [email or web address] Vomiting No 07/19/24 13:40 [email or web address] Anesthesia Postop Eval I: Fluid Summary Crystalloid volume administer 60 07/19/24 13:40 [email or web address] (ml) Colloids volume administered ( ml) Blood Product volume administered (ml) Total IV fluid infused 60 07/19/24 13:40 [email or web address] Anesthesia Postop Eval I: Summary Notes Anesthesia Complication No 07/19/24 13:40 [email or web address] Anesthesia Complication Comment: Post-operative progress note Anesthesia: Postop Eval II Evaluation Mental status: Awake and Calm Pain Level: 0 nausea: No Vomiting: No Complications Anesthesia Complication: No
== END 2024-07-19 14:08 | disposition home or self-care (01) ==
LOC: EN 10:57 → AC 11:00
PROVIDERS: Anesthesiology; PCP Family Medicine; Referring Provider Family Medicine; Visit Provider Internal Medicine Gastroenterology
PROC: 0DJD8ZZ Inspection of Lower Intestinal Tract, Via Natural or Artificial Opening Endoscopic (ICD-10-PCS; CPT 45378; principal; 2024-07-19 12:25)
DX: K21.00 Gastro-esophageal reflux disease with esophagitis, without bleeding (principal); K44.9 Diaphragmatic hernia without obstruction or gangrene; K29.80 Duodenitis without bleeding; K59.09 Other constipation; Z79.899 Other long term (current) drug therapy
CPT/HCPCS: 43248; 43239; 45380; 81025; 88305; A4216; C1769; J2405

== ENCOUNTER → 2024-08-27 | Outpatient (CLI) | payer OTHER, SELFPAY ==
--- NOTE | 2024-08-27 10:21 | MRI_ITS ---
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 TECHNIQUE: MRI of the abdomen was performed with and without intravenous contrast with the enterography protocol. CONTRAST: Clariscan 14 mL FINDINGS: Lung bases: Unremarkable. Liver: Partially visualized and unremarkable.. Gallbladder and bile ducts: Numerous tiny gallstones are present. No biliary dilatation. Spleen: Unremarkable. Pancreas: Unremarkable. Adrenals: Unremarkable. Kidneys and ureters: Unremarkable. Bowel: There are no dilated loops of bowel. No abnormal bowel wall thickening. There is a moderate stool burden throughout the colon.. Lymph nodes: Unremarkable. Peritoneum: Unremarkable. Vessels: Unremarkable. Retroperitoneum: Unremarkable. Pelvic organs: A simple right adnexal cyst present measuring 3.1 cm. An IUD is present in the uterus in satisfactory position. Bladder: Unremarkable. Abdominal wall: Unremarkable. Bones: Unremarkable. MRI/Enterography Abd/Pel IMPRESSION: 1. Normal MRI enterography. 2. Cholelithiasis. 3. IUD present in satisfactory position. 4. Simple appearing left adnexal cyst measuring 3.1 cm, O rads 1. Reading Location: [facility]
[2024-08-27 10:55] VITALS: BP 102/61; PULSE 74; RESP 16; O2SAT 100; BMI 25.0
[2024-08-27] MEDS: Glucagon 1 MG/ML Syringe IV (12:02)
[2024-08-27] MEDS: 0.9% Saline Lock 10 ML Syringe IV (12:05)
[2024-08-27 12:28] VITALS: BP 107/47; PULSE 83; RESP 18; O2SAT 97
== END | disposition home or self-care (01) ==
LOC: MRI 09:55
PROVIDERS: PCP Family Medicine; Referring Provider Student in an Organized Health Care Education/Training Program; Visit Provider Student in an Organized Health Care Education/Training Program
DX: K50.90 Crohn's disease, unspecified, without complications (principal)
CPT/HCPCS: 74183; 96374; A9575; A4216; J1610

== ENCOUNTER → 2024-09-04 | Outpatient (CLI) | payer OTHER, SELFPAY ==
[2024-09-04 10:50] LABS: Erythrocyte Sedimentation Rate < 1 mm/hr (0-30)
[2024-09-04 13:19] LABS: CRP < 3.00 mg/L (0.0-3.0)
== END | disposition home or self-care (01) ==
LOC: LAB 09:58
PROVIDERS: PCP Family Medicine; Referring Provider Student in an Organized Health Care Education/Training Program; Visit Provider Student in an Organized Health Care Education/Training Program
DX: K59.00 Constipation, unspecified (principal)
CPT/HCPCS: 36415; 85652; 86140

== ENCOUNTER → 2024-09-10 | Outpatient (CLI) | payer OTHER, SELFPAY ==
[2024-09-12 16:09] LABS: Calprotectin, Stool 42 ug/g (0-120)
== END | disposition home or self-care (01) ==
LOC: LABSPEC 13:00
PROVIDERS: PCP Family Medicine; Referring Provider Student in an Organized Health Care Education/Training Program; Visit Provider Student in an Organized Health Care Education/Training Program
DX: K59.00 Constipation, unspecified (principal)
CPT/HCPCS: 83993

== ENCOUNTER 2024-10-18 15:50 | Emergency (ER) | payer OTHER, SELFPAY ==
[2024-10-18 15:51] VITALS: BP 113/67; PULSE 88; RESP 15; TEMP 36.2; O2SAT 97; BMI 25.9
== END 2024-10-18 17:13 | disposition left against medical advice (07) ==
LOC: ED 17:14
PROVIDERS: PCP Family Medicine
DX: Z00.00 Encounter for general adult medical examination without abnormal findings (principal)

== ENCOUNTER → 2024-10-23 | Outpatient (CLI) | payer OTHER, SELFPAY ==
--- NOTE | 2024-10-23 07:43 | US_ITS ---
PROCEDURE: ABDOMEN LIMITED 10/23/2024 REASON FOR EXAM: ABD PAIN TECHNIQUE: Complete abdominal ultrasound levy-scale images with color doppler. PATIENT PREPARATION: Per protocol COMPARISON: Prior CT scan dated March 17, 2021. FINDINGS: Liver: Grossly normal size and echotexture. Gallbladder: Multiple echogenic gallstones are identified. Common bile duct: Normal measuring 2 mm . Pancreas: Visualized portions are sonographically unremarkable. Kidneys: The right kidney measures 10.9 cm 5.9 cm 6.2 cm. The renal cortex measures 2.7 cm.. US/Abdomen Limited IMPRESSION: Multiple gallstones. Reading Location: [facility]
== END | disposition home or self-care (01) ==
LOC: US 07:38
PROVIDERS: PCP Family Medicine; Referring Provider Student in an Organized Health Care Education/Training Program; Visit Provider Student in an Organized Health Care Education/Training Program
DX: K80.20 Calculus of gallbladder without cholecystitis without obstruction (principal)
CPT/HCPCS: 76705

== ENCOUNTER 2024-11-02 06:03 | Emergency (ER) | payer OTHER, SELFPAY ==
[2024-11-02 06:04] VITALS: BP 129/72; PULSE 75; RESP 16; TEMP 36.4; O2SAT 100; BMI 27.6
[2024-11-02 06:07] VITALS: BP 129/72; PULSE 74; RESP 16; TEMP 36.4; O2SAT 98
--- NOTE | 2024-11-02 07:13 | ED.VIS.GI ---
HPI HPI - GI History of Present Illness Chief Complaint: Abd Pain Informant: patient and parent Abdominal Pain/Flank Pain Onset: Hours (4) Context: Sudden Onset (Woke her up from sleep couple hours after eating sabillon) Timing: Continuous (Colicky) Quality: Burning and Cramping Location: Epigastric Current Severity: Gone Maximum Severity: Severe Nausea/Vomiting/Emesis GI Symptom: Positive for Vomiting Diarrhea/Melena/Hematochezia GI Symptom: Negative for Diarrhea, Melena or Hematochezia Narrative Narrative: 23-year-old female with an episode of pain this morning, started 3 hours or so after eating sabillon. She has known gallstones that were just found on an ultrasound 5 days ago. She been having these episodes for about a month but she was already established with GI Dr. Albert, as nurse practitioner ordered her an outpatient ultrasound which she just found out about. She has not had an appointment or any counseling regarding this since having the knowledge of having gallstones. She states just prior to me walking and she vomited and the pain went away. PFSH [facility] Medical History Gallstone Wears contact lenses Alcohol use Non-smoker Epigastric pain Dysphagia Recurrent UTI History of suicide attempt Anxiety Depression Constipation GERD (gastroesophageal reflux disease) Home Medications ?Medication ?Instructions ?Recorded ?Last Taken ?Type ibuprofen 600 mg tablet 600 mg PO Q6H PRN Pain #20 tabs 08/02/19 Unknown Rx bupropion HCl 300 mg 24 hr tablet, 300 mg PO QAM 06/01/24 Unknown History extended release fluoxetine 40 mg capsule 80 mg PO DAILY 06/01/24 Unknown History levonorgestrel (Mirena) 1 device intrauterine ONCE 06/01/24 Unknown History tirzepatide 10 mg/0.5 mL 10 mg subcut QWEEK 06/01/24 07/12/24 History subcutaneous pen injector pantoprazole 40 mg tablet,delayed 40 mg PO BID 06/13/24 Unknown History release linaclotide 145 mcg capsule 145 mcg PO QAM #60 caps 08/29/24 Unknown Rx (Linzess) Allergy/AdvReac Type Severity Reaction Status Date / Time No Known Allergies Allergy Verified 11/02/24 06:04 Family History Mother Depression Father HLD (hyperlipidemia) Surgical History Hx of surgical procedure Social History Smoking Status: Never smoker alcohol intake: never substance use type: does not use ROS ROS ED Constitutional Constitutional ED: Denies chills or fever(s) Eyes Eyes: Denies change in vision or diplopia ENT ENT ED: Denies rhinorrhea or sore throat Cardiovascular Cardiovascular: Denies chest pain or palpitations Respiratory/Chest Respiratory/Chest: Denies cough or dyspnea Gastrointestinal Gastrointestinal: Reports abdominal pain and vomiting; Denies diarrhea Genitourinary Genitourinary ED: Denies dysuria or hematuria Musculoskeletal Musculoskeletal: Reports back pain; Denies neck pain Integumentary Denies abscess or rash Neurologic Neurologic: Denies headache(s), paresthesias or weakness Psychiatric Psychiatric: Denies anxiety or suicidal thoughts EXAM Physical Exam Const Vital Signs: 11/02/24 06:04 11/02/24 06:07 11/02/24 07:59 Temperature 97.6 F L 97.6 F L 98.4 F Temperature Source Oral Oral Oral Pulse Rate 75 74 79 Respiratory Rate 16 16 16 Blood Pressure 129/72 H 129/72 H 123/58 H Blood Pressure Mean 91 91 79 Pulse Ox 100 98 98 Oxygen Delivery Method Room Air Room Air Room Air 11/02/24 08:37 Temperature Temperature Source Pulse Rate 81 Respiratory Rate 16 Blood Pressure 115/75 Blood Pressure Mean 88 Pulse Ox 96 Oxygen Delivery Method Room Air Positive well nourished and well developed General Appearance ED: well developed and NAD HEENT Reports moist mucous membranes normocephalic and atraumatic Eyes PERRL and EOMs intact bilaterally Neck full ROM and supple Resp normal respiratory effort and clear to auscultation bilaterally Cardio regular rate, regular rhythm and no murmurs GI non-tender and non-distended GI Narrative: Benign nontender abdomen Auscultation: normoactive bowel sounds Palpation: soft Back/Spine no CVA tenderness General Back: other FROM Extremity normal to inspection General Extremety ED: Negative for edema, pulses abnormal or tenderness General Extremity: Negative for edema or pulses abnormal Neuro oriented x3, CN's II-XII intact bilaterally and no sensory deficits noted Sensorium / Orientation: awake and alert Motor Exam: strength 5/5 throughout Skin no rashes or lesions noted and no wounds MDM MDM MDM Narrative Medical decision making narrative: At this time patient has a very benign abdomen. test is negative ruling out ectopic , her liver enzymes are slightly elevated AST and ALT, she has no hyperbilirubinemia and her lipase is normal. She does not have a leukocytosis or leftward shift. She was given IV fluids and some Zofran, she felt better and with this developing some mild cramping on reevaluation in her upper abdomen. Gave her some Toradol, felt a little better, on reexamination she has very mild burning and is a little tenderness in the epigastrium, negative Montoya. She has a history of reflux, and she thinks this feels like it I think am going to give her some Mylanta prior to discharge, have her follow-up with a surgeon, avoid fatty foods which we discussed at length, and we discussed reasons to return and signs and symptoms of acute cholecystitis which I do not think she is having right now. History & Record Review Additional record(s) reviewed:: Prior outpatient record (Gallbladder ultrasound 10 days ago showing stones) Lab Data Attestation: I reviewed the patient's lab results. Labs: Laboratory Results - last 24 hr 11/02/24 06:10 WBC 9.2 RBC 4.39 Hgb 13.2 Hct 40.4 MCV 92.0 MCH 30.1 MCHC 32.7 RDW Std Deviation 40.6 RDW Coeff of Zaynab 12.0 Plt Count 273 MPV 10.2 Immature Gran % (Auto) 0.400 Neut % (Auto) 56.0 Lymph % (Auto) 36.0 [place] % (Auto) 5.9 Eos % (Auto) 1.2 Baso % (Auto) 0.5 Absolute Neuts (auto) 5.2 Absolute Lymphs (auto) 3.32 Nucleated RBC % 0 Sodium 138 Potassium 3.8 Chloride 101 Carbon Dioxide 28.4 Anion Gap 9 BUN 12 Creatinine 0.68 L Estim Creat Clear Calc 122.34 Est GFR (MDRD) Non-Af 126 BUN/Creatinine Ratio 18.2 Glucose 73 Calcium 9.3 Total Bilirubin 0.25 AST 39 H ALT 70 H Alkaline Phosphatase 63 Total Protein 6.5 Albumin 4.3 Globulin 2.2 Albumin/Globulin Ratio 1.9 Lipase 26 Serum , Qual NEGATIVE Discharge Plan Triage Chief Complaint: Abd Pain ED Provider: Joss Walker Dx/Rx/DC Orders Clinical Impression: Biliary colic, Cholelithiasis Instructions: ED Diet, Low Fat, ED Gallstones with Biliary Colic Prescriptions: No Action Mirena 21 mcg/24hr (up to 8 yrs) 52 mg intrauterine device 1 device intrauterine ONCE Rx Instructions: as a single dose fluoxetine 40 mg capsule 80 mg PO DAILY Rx Instructions: administer in the morning and at noon/midday bupropion HCl 300 mg tablet extended release 24 hr 300 mg PO QAM tirzepatide 10 mg/0.5 mL pen injector 10 mg subcut QWEEK pantoprazole 40 mg tablet,delayed release (DR/EC) 40 mg PO BID ibuprofen 600 MG tablet 600 mg PO Q6H PRN (Reason: Pain) Qty: 20 1RF Linzess 145 mcg capsule 145 mcg PO QAM Qty: 60 2RF Primary Care Provider: Shabbir Tran Referrals: Ras Pak MD [Med Staff - Active Staff] - As soon as possible Activity Restrictions/Additional Instructions: For severe recurrent episodes of pain/vomiting, return to ER for reevaluation Print Language: Ugandan Disposition Disposition: Home, Self Care
[2024-11-02] MEDS: Ondansetron 4 MG/2 ML Vial IV (07:16)
[2024-11-02] MEDS: 0.9% Normal Saline (500mL Bag) 500 ML 999 ML IV (07:16)
[2024-11-02 07:19] LABS: Absolute Lymphocyte Count 3.32 X10^3/uL (0.83-4.51); Absolute Neutrophil Count 5.2 X10^3/uL (2.0-7.7); Basophil# 0.05 X10^3/uL; Basophil% 0.5 % (0-1); Eosinophil# 0.11 X10^3/uL; Eosinophils% 1.2 % (0-5); Hematocrit 40.4 % (37-47); Hemoglobin 13.2 g/dL (12.0-15.0); Lymphocyte # 3.32 X10^3/ul (0.83-4.51); Mean Corp Hgb Conc 32.7 g/dL (32-36); Mean Corpuscular Hgb 30.1 pg (27.0-32.0); Mean Platelet Vol. 10.2 fl (6.2-12.0); Monocyte# 0.54 X10^3/uL; Monocyte% 5.9 % (0-10); NRBC Flagged by Analyzer 0 % (0-5); Neutrophil # 5.16 X10^3/uL (2.7-7.7); Platelet Count 273 K/mm3 (150-450); RBC Distribution Width SD 40.6 fl (35.1-43.9); Red Blood Count 4.39 M/mm3 (4.2-5.4); White Blood Count 9.2 K/mm3 (4.4-11.0)
[2024-11-02 07:42] LABS: ALB/GLOB Ratio 1.9 RATIO (0.9-2.4); AST(SGOT) 39 U/L (<=31); Alanine Aminotransfer ALT/SGPT 70 U/L (<=34); Albumin, Serum 4.3 g/dL (3.5-5.0); Alkaline Phosphatase 63 U/L (35-104); Anion Gap 9 (5-15); BUN 12 mg/dL (4-19); BUN/Creat Ratio 18.2 RATIO (10-20); Calcium,Total 9.3 mg/dL (7.6-11.0); Carbon Dioxide 28.4 mmol/L (21.0-32.0); Chloride 101 mmol/L (98-108); Creatinine, Serum 0.68 mg/dL (0.70-1.20); EST Glomerular Filtration Rate 126 (>60); Estimated Creatinine Clearance 122.34 ml/min (50-250); Globulin 2.2 g/dL (2.2-4.2); Glucose 73 mg/dL (70-99); Lipase 26 U/L (13-75); Potassium 3.8 mmol/L (3.3-5.1); Protein, Total 6.5 g/dL (5.9-8.4); Sodium Level 138 mmol/L (133-145); Total Bilirubin 0.25 mg/dL (0.00-1.30)
[2024-11-02 07:44] LABS: Internal QC Validated? YES +Cl - CLEAR BKGD; Pregnancy, Serum, hCG Quali. NEGATIVE Negative
[2024-11-02 07:59] VITALS: BP 123/58; PULSE 79; RESP 16; TEMP 36.9; O2SAT 98
[2024-11-02] MEDS: Ketorolac 15 MG/ML Vial IV (08:36)
[2024-11-02 08:37] VITALS: BP 115/75; PULSE 81; RESP 16; O2SAT 96
[2024-11-02] MEDS: Mag Hydrox/Al Hydrox/Simeth 30 ML UDC PO (09:23)
[2024-11-02 09:24] VITALS: BP 110/58; PULSE 87; RESP 16; TEMP 36.7; O2SAT 96
== END 2024-11-02 09:25 | disposition home or self-care (01) ==
PROVIDERS: Emergency Provider Emergency Medicine; PCP Family Medicine; Visit Provider Emergency Medicine
DX: K80.70 Calculus of gallbladder and bile duct without cholecystitis without obstruction (principal); K21.9 Gastro-esophageal reflux disease without esophagitis; Z79.899 Other long term (current) drug therapy
CPT/HCPCS: 80053; 83690; 84703; 85025; 96361; 96374; 96375; 99282; A4216; J2405

== ENCOUNTER 2024-12-14 08:04 | Day surgery (SDC) | payer OTHER, SELFPAY ==
[2024-12-14] MEDS: Lidocaine Jelly 2% 20 ML Syringe (URO-JET) 1 APPLIC (08:17)
[2024-12-14 08:22] VITALS: BP 103/62; PULSE 86; TEMP 36.8; O2SAT 100
== END 2024-12-14 08:42 | disposition home or self-care (01) ==
PROVIDERS: PCP Family Medicine; Referring Provider Internal Medicine Gastroenterology; Visit Provider Internal Medicine Gastroenterology
PROC: F00ZJWZ Instrumental Swallowing and Oral Function Assessment using Swallowing Equipment (ICD-10-PCS; CPT 43235; principal; 2024-12-14 07:55)
DX: R13.10 Dysphagia, unspecified (principal)
CPT/HCPCS: 91010

== ENCOUNTER 2024-12-31 06:05 | Day surgery (SDC) | payer OTHER, SELFPAY ==
[2024-12-31] VITALS (10 sets, daily range): BP systolic 115–127; BP diastolic 71–82; PULSE 57–76; RESP 14–16; TEMP 36.1–36.7; O2SAT 99–100; BMI 25.4
--- NOTE | 2024-12-31 06:20 | EKG12_ITS ---
Test Reason : PREOP Blood Pressure : */* mmHG Vent. Rate : 65 BPM Atrial Rate : 65 BPM P-R Int : 164 ms QRS Dur : 84 ms QT Int : 402 ms P-R-T Axes : 37 64 52 degrees QTcB Int : 418 ms Normal sinus rhythm Normal ECG No previous ECGs available Confirmed by ASAD AREVALO, GRACIELA ([id number]), editor news CHRISTIANO POSADA ([id number]) on 01/01/2025 1:07:17 PM Referred By: Ras Pak Confirmed By: GRACIELA KAMARA MD
[2024-12-31 06:38] LABS: Internal QC Validated? YES +Cl - CLEAR BKGD; Pregnancy, Urine Negative Negative; Record Kit Lot#,Urine Preg 0000962302
[2024-12-31] MEDS: INDOCYANINE GREEN 3.75 MG in Syringe 1.5 ML 999 MG IV (06:40)
[2024-12-31] MEDS: Lactated Ringers 1,000 ML 15 ML IV (06:41)
--- NOTE | 2024-12-31 07:03 | PRE.ANES_ITS ---
ASA Classification* ASA Classification ASA Classification: 2 Assessment & Plan Anesthesia* Anesthesia Assessment Anesthesia Assessment: Discussed sedation and/or anesthesia options, risks, benefits, and alternatives with patient/parents/legal guardian/POA. Questions invited. The patient/parents/legal guardian/POA seems to understand and agrees to proceed with anesthesia plan. Reviewed the physical assessment, medical history, allergy history and patient home medications list prior to surgery/procedure/anesthetic and documented any changes. Performed airway and anesthesia risk assessments. Anesthesia Type Anesthesia Type: General Anesthesia Focused Assessment* Temperature: 98.0 F Pulse Rate: 73 Blood Pressure: 115/77 Respiratory Rate: 16 Pulse Ox: 100 Airway Assessment Mouth opens: >3 cm Mallampati Score: II Labs Anesthesia Preop lab: CBC WBC 9.2 K/mm3 (4.4-11.0) 11/02/24 06:10 11/02/24 RBC 4.39 M/mm3 (4.2-5.4) 11/02/24 06:10 11/02/24 Hgb 13.2 g/dL (12.0-15.0) 11/02/24 06:10 11/02/24 Hct 40.4 % (37-47) 11/02/24 06:10 11/02/24 Plt Count 273 K/mm3 (150-450) 11/02/24 06:10 11/02/24 CHEMISTRY Potassium 3.8 mmol/L (3.3-5.1) 11/02/24 06:10 11/02/24 Sodium 138 mmol/L (133-145) 11/02/24 06:10 11/02/24 BUN 12 mg/dL (4-19) 11/02/24 06:10 11/02/24 Creatinine 0.68 mg/dL (0.70-1.20) L 11/02/24 06:10 Glucose 73 mg/dL (70-99) 11/02/24 06:10 11/02/24 COAG Urine Test Negative Negative 12/31/24 06:15 12/31/24 Pre-Assessment Diagnosis/Proposed Procedure Planned Operative Procedure(s): Robotic Cholecystectomy Anesthesia History 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 When Was Last Pacemaker Check QUESTION #4 FULL TEXT: You/Your Family Experience fever (hyperthermia) with Anesthesia Last Oral Intake Last Oral intake: Last Oral Intake NPO since 23:30 12/31/24 06:45 Meds taken in AM with sips of water? Meds patient instructed to take am of surgery PONV PONV - advertising account executive: PONV - advertising account executive Female Yes 12/17/24 13:20 HX of Motion Sickness Yes 12/17/24 13:20 HX of N/V After Surgery No 12/17/24 13:20 Non-Smoker Yes 12/17/24 13:20 Duration of Surgery greater Yes 12/17/24 13:20 than 60 minutes Number of Risk Factors 4 12/17/24 13:20 PONV Score Severe Risk 12/17/24 13:20 Height & Weight Height & Weight: Anesthesia: Height & Weight Height 5 ft 3 in 12/31/24 06:45 Weight: 65 kg 12/31/24 06:45 Body Mass Index (BMI) 25.4 12/31/24 06:45 Respiratory Assessment Respiratory Assessment - advertising account executive: Respiratory Tract Infection Hx - advertising account executive Hx Respiratory Tract Infection No 12/17/24 13:20 STOP Sleep Apnea STOP Sleep Apnea - advertising account executive: STOP Sleep Apnea - advertising account executive Hx Hypertension No 12/17/24 13:20 Hx Sleep Apnea No 12/17/24 13:20 CPAP No 07/19/24 13:32 BIPAP Do you snore loudly (louder No 12/17/24 13:20 than talking or can be heard Do you often feel tired/ No 12/17/24 13:20 fatigued/ sleepy during daytime? Has anyone observed you stop No 12/17/24 13:20 breathing during sleep? STOP Results Negative 12/17/24 13:20 QUESTION #5 FULL TEXT : Do you snore loudly (louder than talking or can be heard through closed doors)? 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 Specify any problems Hx of Preganancy in last 3 No 12/17/24 13:20 Months Nurse Filling Out Transfusion JZOLLINGE 12/17/24 13:20 & Questions: Date: 12/17/24 12/17/24 13:20 Time: 13:22 12/17/24 13:20 Patient unable to answer at this time (ie. confused, unrespo /Reproduction History /Reproductive History - advertising account executive: /Reproductive Hx- advertising account executive Hx Now No 12/17/24 13:20 Gestational Age (in weeks): EDC: Hx Hx Para Hx Section SAB No 12/17/24 13:20 Active Medications Active Medications: Current Medications Generic Name Dose Route Start Last Admin Trade Name Freq PRN Reason Stop Dose Admin Indocyanine Green 3.75 mg/ N/A 1.5 mls @ 999 mls/hr 12/31/24 07:30 12/31/24 06:40 IV 12/31/24 07:31 999 mls/hr PREOP ONE Administration Lactated Ringer's 1,000 mls @ 15 mls/hr 12/31/24 06:15 12/31/24 06:41 IV 15 mls/hr .Q48H SHERLY Administration PFSH Medical History Dietary restriction History of IBS Gallstone Wears contact lenses Alcohol use Non-smoker Epigastric pain Dysphagia Recurrent UTI History of suicide attempt Anxiety Depression Constipation GERD (gastroesophageal reflux disease) Home Medications ?Medication ?Instructions ?Recorded ?Last Taken ?Type ibuprofen 600 mg tablet 600 mg PO Q6H PRN Pain #20 t abs 08/02/19 Unknown Rx bupropion HCl 300 mg 24 hr tablet, 300 mg PO QAM 06/0112/30/24 History extended release fluoxetine 40 mg capsule 80 mg PO DAILY 06/01/24 Unkn own History levonorgestrel (Mirena) 1 device intrauterine ONCE 1 08/02/23 Unknown History pantoprazole 40 mg tablet,delayed 40 mg PO BID 5 12/30/24 History release linaclotide 145 mcg capsule 145 mcg PO QAM #60 caps 12/30/24 Rx (Linzess) Allergy/AdvReac Type Severity Reaction Status Date / Time No Known Allergies Allergy Verified 12/31/24 06:35 Family History Mother Depression Father HLD (hyperlipidemia) Surgical History Hx of surgical procedure Social History Smoking Status: Never smoker alcohol intake: never substance use type: does not use Review of Systems (Anesthesia) ROS Narrative System reviewed and no additional complaints, except as documented.
--- NOTE | 2024-12-31 07:16 | PCM.HP.STD ---
HPI - General General Date of Admission: 12/31/24 Date of Service: 12/31/24 Chief Complaint: RUQ pain HPI Narrative ADEN COLEMAN, is a 24 F who presents for elective cholecystectomy. c/o RUQ pain and has gallstones [facility] Medical History Dietary restriction History of IBS Gallstone Wears contact lenses Alcohol use Non-smoker Epigastric pain Dysphagia Recurrent UTI History of suicide attempt Anxiety Depression Constipation GERD (gastroesophageal reflux disease) Home Medications ?Medication ?Instructions ?Recorded ?Last Taken ?Type ibuprofen 600 mg tablet 600 mg PO Q6H PRN Pain #20 tabs 08/02/19 Unknown Rx bupropion HCl 300 mg 24 hr tablet, 300 mg PO QAM 06/01/24 12/30/24 History extended release fluoxetine 40 mg capsule 80 mg PO DAILY 06/01/24 Unknown History levonorgestrel (Mirena) 1 device intrauterine ONCE 06/01/24 Unknown History pantoprazole 40 mg tablet,delayed 40 mg PO BID 06/13/24 12/30/24 History release linaclotide 145 mcg capsule 145 mcg PO QAM #60 caps 08/29/24 12/30/24 Rx (Linzess) Allergy/AdvReac Type Severity Reaction Status Date / Time No Known Allergies Allergy Verified 12/31/24 06:35 Family History Mother Depression Father HLD (hyperlipidemia) Surgical History Hx of surgical procedure Social History Smoking Status: Never smoker alcohol intake: never substance use type: does not use Vital Signs Vital Signs Vital Signs: 12/31/24 06:45 12/31/24 06:45 12/31/24 07:03 Temperature 98.0 F 98.0 F Temperature Source Temporal Pulse Rate 73 73 Respiratory Rate 16 16 Respiratory Pattern Normal Blood Pressure 115/77 115/77 Blood Pressure Mean 89 Blood Pressure Source Monitor Blood Pressure Position Semi-Fowlers Blood Pressure Location Left Arm Pulse Ox 100 100 Oxygen Delivery Method Room Air Weight Weight: 143 lb 4.807 oz Body Mass Index (BMI) 25.4 Physical Exam Const alert and oriented x3 Results Lab / Micro Data Labs: Laboratory Results - last 24 hr 12/31/24 06:15: Urine Test Negative Assessment & Plan Assessment/Plan (1) Abdominal pain: (2) Biliary dyskinesia: PLAN: Plan robotic cholecystectomy today
--- NOTE | 2024-12-31 07:30 | GALL_PTH ---
PATIENT: ADEN COLEMAN LOC: [facility] [place][id number] AGE/SX: 24/ ROOM: RE12/31/[address]: Dr. Ras Pak MD : 2000 BED: DIS: 12/31/2024 SPEC #: [id number] RECD: 12/31/24 09:49 STATUS: ELOISA REDarrius #: [id number] STACEY: 12/31/24 07:[address]: Ras Pak DEPT: SURGICAL PATHOLOGY RECD BY: Raphael Caro ENTERED: 12/31/24 11:10 SP TYPE: NEIDA GOODMAN DR: Dr. Shabbir Tran MD Tissues: A - Gallbladder, NOS Procedures: Surgery Specimen Level III HEADER OPERATION: Robotic cholecystectomy PRE-OP DIAGNOSIS: Abdominal pain, biliary dyskinesia TISSUE SUBMITTED: A- Gallbladder MICROSCOPIC DIAGNOSIS A. Gallbladder, abdominal pain, biliary dyskinesia, cholecystectomy: - Chronic cholecystitis, cholelithiasis - see note. Note: Focal slightly polypoid mucosa is noted on deeper sections. No cholesterolosis is seen. MICROSCOPIC DESCRIPTION Slides are reviewed. GROSS DESCRIPTION A. Received in formalin labeled with the patient's name and date of . Designated as gallbladder is a 6.9 x 3.1 x 3.0 cm pink-purple to green, intact and distended gallbladder with attached patent cystic duct (inked black, shaved). A lymph node is not present. Opening reveals dark green, tenacious bile and multiple yellow and bosselated choleliths, ranging 0.2 cm to 0.5 cm. The mucosa is flores and granular with a maximum wall thickness of 0.1 cm. There are 2 possible cholesterol polyps, 0.1 cm and 0.2 cm, each located >3.1 cm from the resection margin. Dorr Operator sections are submitted in 1 cassette. SD 12/31/2024 CPT:84127
[2024-12-31] MEDS: Bupiv/Epi 0.25% 30 ML Vial (08:35)
--- NOTE | 2024-12-31 08:56 | EX.PCM.DISCH ---
Discharge Instructions Diet Discharge Diet: Light diet - advance as tolerated Activity Discharge Activity: Return to Normal Activity May shower in (days): 1 Ice area for (Minutes): 30 Lifting Restrictions: No lifting pushing or pulling more than 20 pounds for 4 weeks Dressing / Incision Call your doctor if your incision/area has: Continuous Slow Oozing, Sudden Increased Bleeding, Increased Pain/ Swelling, Increased Redness, Foul Smelling Discharge and Swelling at the incision site Call your doctor if you observe: Fever of 101 or Higher Remove Dressing in: leave until fall off Cleanse incision/area with: Soap & Water Follow Up Care Please Follow Up With: Ras Pak MD When: 2 weeks. Please call office to schedule appointment Test Results: Test results from this visit will be discussed in further detail at your follow-up appointment, if applicable. Discharge Plan Admission Primary Reason for Your Visit: Robotic cholecystectomy Attending Provider: Ras Pak Primary Care Provider: Shabbir Tran Instructions Print Language: Moldovan Discharge Orders/Prescriptions Prescriptions: New oxycodone 5 mg tablet 5 mg PO Q8H PRN (Reason: pain) 4 Days Qty: 10 0RF Continued Mirena 21 mcg/24hr (up to 8 yrs) 52 mg intrauterine device 1 device intrauterine ONCE Rx Instructions: as a single dose fluoxetine 40 mg capsule 80 mg PO DAILY Rx Instructions: administer in the morning and at noon/midday bupropion HCl 300 mg tablet extended release 24 hr 300 mg PO QAM pantoprazole 40 mg tablet,delayed release (DR/EC) 40 mg PO BID ibuprofen 600 MG tablet 600 mg PO Q6H PRN (Reason: Pain) Qty: 20 1RF Linzess 145 mcg capsule 145 mcg PO QAM Qty: 60 2RF Referrals / Follow Up: Shabbir Tran MD [Primary Care Provider] - Disposition Disposition (needs filled in before D/C Order can be placed): Home, Self Care
--- NOTE | 2024-12-31 09:00 | OP.PCM_ITS ---
Procedures Digestive 40xxx-49xxx: [address] [place] cholecystectomy/graph Operative Report (Standard) Operative Information Date of Procedure: 12/31/24 Pre-Operative Diagnosis: Biliary dyskinesia Post-Operative Diagnosis: Same Surgery/Procedure Performed: Robotic cholecystectomy with ICG cholangiogram machine stonecutter: Yes [employer] Underwriter: Maurice Lopez Tasks completed by botany laboratory assistant: Closing and Other Additional assistant chief train dispatcher?: No Type of Anesthesia: General and Local RN Documented Start/Stop Times: Operation Date: 12/31/24 07:30 Case Time Into Pre-Op 12/31/24 06:12 Out of Pre-Op 12/31/24 07:26 Anesthesia Start 12/31/24 07:30 Into Room 12/31/24 07:30 Procedure Start 12/31/24 07:52 Procedure End 12/31/24 08:47 Anesthesia End 12/31/24 08:52 Out of Room 12/31/24 08:52 Into Recovery 12/31/24 08:55 Procedure Start Time: 07:52 Procedure Stop Time: 08:47 Select all DRAINS/GRAFTS/IMPLANTS that apply: None Estimated Blood Loss: Minimal Specimen collected: Yes Description of specimen(s) removed: Gallbladder Description of surgery: The patient is a 24-year-old female recently seen to the office with right upper quadrant pain. She is found to have gallstones and also was found to have a low ejection fraction of her gallbladder. Her symptoms seem consistent with biliary colic and so I recommended a robotic cholecystectomy as treatment. We discussed the details of the planned procedure including the risks benefits and alternatives. She wished to proceed. She was brought to the operating room today following informed consent. She is placed supine on the operative table with arms comfortably at her side. General endotracheal anesthesia was induced. Once adequately sedated the abdomen is then prepped and draped in the usual sterile manner her arms were comfortably tucked at her sides. A 5 mm incision was made just below the umbilicus which is 5 mm trocar was placed optically. This was placed without incident. Once in place the abdomen is then fully insufflated with CO2 gas. A 5 mm 0 degree scope was inserted. There were no signs of bowel or vascular injury. Next an 8 mm trocar was placed on the right side of the abdomen under direct visualization. 2 additional 8 mm trocars were placed on the left side of the abdomen also under direct visualization. All of these were placed without incident. The patient was positioned with some head up and rolled to the left to improve exposure. The [employer] robot was then brought to the operative field and was docked appropriately. 2 graspers and a hook were inserted along with the camera. The gallbladder was grasped and reflected in a cephalad direction. The peritoneum on either side of the gallbladder was then incised using electrocautery and the hook. The peritoneum was then cleared off of the infundibulum which allowed dissection of the cystic duct and cystic artery. ICG cholangiography was also used to confirm the cystic duct anatomy. The lower third of the gallbladder was dissected free from the liver to establish a critical view of safety such that 2 and only 2 structures were going to the gallbladder. There is 2 structures where the cystic duct and cystic artery. The 2 structures were then clipped proximally distally and then transected using electrocautery. The gallbladder was then bovied off the undersurface of the liver using electrocautery and the hook until free. Once freed the gallbladder was placed into a bag. This was brought out through the umbilical trocar site. A fascial closure device was used to close the fascia at this location as we did need to stretch this somewhat to remove the gallbladder. The remaining trocars were then opened up. Insufflation was allowed to escape. Local anesthetic was injected during the course of the operation both at the beginning as well as more at the end. The incision sites were closed using 4-0 Vicryl. Skin glue was applied as dressing. She was awakened anesthesia and taken recovery in good condition. Surgical Findings: See operative note Complications Complications: No Admit VTE Documentation VTE Present on Admission: No VTE Mechan Device Prophylaxis: SCD's VTE Pharm Prophylaxis ordered?: No Reason prophylaxis not ordered: Treatment Not Indicated
--- NOTE | 2024-12-31 09:00 | PCM.POST.ANE ---
Anesthesia: Postop Eval I Current Vital Signs Temperature: 97.2 F Pulse Rate: 76 Blood Pressure: 119/76 Respiratory Rate: 16 Pulse Ox: 100 Oxygen Delivery Method: Room Air Assessment Airway patent: Yes Spontaneous unlabored respirations: Yes Mental status: Awake and Calm nausea: Yes Vomiting: No Anesthesia Complication: No Fluid Hydration Crystalloid volume administer (ml): 800 Total IV fluid infused: 800 Progress Note Anesthesia document: Postop Eval 1 completed: Yes
--- NOTE | 2024-12-31 09:36 | POSTOPAN2_ITS ---
Anesthesia Postop Eval I Sum Postop Eval Completion status Anesthesia document: Postop Eval 1 completed: Yes Anesthesia Postop Eval I Summary Anesthesia Postop Eval I Summary: Anesthesia Postop Eval I: Assessment Summary Airway patent Yes 12/31/24 09:01 CLOTH [email or web address] Spontaneous unlabored Yes 12/31/24 09:01 CLOTH [email or web address] respirations Mental status Awake,Calm 12/31/24 09:01 CLOTH FEEDER.[email or web address] nausea Yes 12/31/24 09:01 CLOTH FEEDER.[email or web address] Vomiting No 12/31/24 09:01 CLOTH [email or web address] Anesthesia Postop Eval I: Fluid Summary Crystalloid volume administer 800 12/31/24 09:01 CLOTH FEEDER.JDEF (ml) Colloids volume administered ( ml) Blood Product volume administered (ml) Total IV fluid infused 800 12/31/24 09:01 CLOTH [email or web address] Anesthesia Postop Eval I: Summary Notes Anesthesia Complication No 12/31/24 09:01 CLOTH [email or web address] Anesthesia Complication Comment: Post-operative progress note Anesthesia: Postop Eval II Evaluation Mental status: Awake Pain Level: 0 nausea: No Vomiting: No
--- NOTE | 2024-12-31 09:36 | PCM.POSTANE2 ---
Anesthesia Postop Eval I Sum Postop Eval Completion status Anesthesia document: Postop Eval 1 completed: Yes Anesthesia Postop Eval I Summary Anesthesia Postop Eval I Summary: Anesthesia Postop Eval I: Assessment Summary Airway patent Yes 12/31/24 09:01 WOUND CARE [email or web address] Spontaneous unlabored Yes 12/31/24 09:01 WOUND CARE COORDINATOR.JDEF respirations Mental status Awake,Calm 12/31/24 09:01 WOUND CARE COORDINATOR.JDEF nausea Yes 12/31/24 09:01 WOUND CARE COORDINATOR.JDEF Vomiting No 12/31/24 09:01 WOUND CARE COORDINATOR.JDEF Anesthesia Postop Eval I: Fluid Summary Crystalloid volume administer 800 12/31/24 09:01 WOUND CARE [email or web address].JDEF (ml) Colloids volume administered ( ml) Blood Product volume administered (ml) Total IV fluid infused 800 12/31/24 09:01 WOUND CARE COORDINATOR.JDEF Anesthesia Postop Eval I: Summary Notes Anesthesia Complication No 12/31/24 09:01 WOUND CARE COORDINATOR.JDEF Anesthesia Complication Comment: Post-operative progress note Anesthesia: Postop Eval II Evaluation Mental status: Awake Pain Level: 0 nausea: No Vomiting: No
== END 2024-12-31 10:47 | disposition home or self-care (01) ==
LOC: SDC 06:08 → AC 06:11
PROVIDERS: Anesthesiology; PCP Family Medicine; Referring Provider Surgery; Visit Provider Surgery
PROC: 0FT44ZZ Resection of Gallbladder, Percutaneous Endoscopic Approach (ICD-10-PCS; CPT 47562; principal; 2024-12-31 07:10)
DX: K80.10 Calculus of gallbladder with chronic cholecystitis without obstruction (principal); K82.8 Other specified diseases of gallbladder; K21.9 Gastro-esophageal reflux disease without esophagitis; Z79.899 Other long term (current) drug therapy
CPT/HCPCS: 47563; S2900; 00790; 81025; 88304; 93005; J2405